=== PATIENT | female | born 1995 | race Hispanic/Latino ===

== ENCOUNTER 2022-05-16 05:35 | Emergency (ER) | payer MEDICAID ==
[~2022-05-16] VITALS: Ht 167.6 cm; Wt 106.6 kg
[2022-05-16] MEDS ORDERED: PROCHLORPERAZINE 10MG/2ML INJ IV ONE (06:30)
[2022-05-16] MEDS ORDERED: DiphenhydrAMINE HCL 50 MG/ML VIAL IV ONE (06:30)
[2022-05-16] MEDS ORDERED: KETOROLAC 15MG/ML VIAL (15MG/ML) IV ONE (06:30)
[2022-05-16] MEDS ORDERED: FIORIT PO (06:36)
[2022-05-16 07:04] VITALS: BP 135/72
== END 2022-05-16 07:20 | disposition home or self-care (01) ==
LOC: EDH 05:35
DX: R51.9 Headache, unspecified (principal); Z79.1 Long term (current) use of non-steroidal anti-inflammatories (NSAID)
CPT/HCPCS: 99284; 96374; 96375; J1200; J0780; J1885

== ENCOUNTER 2022-11-23 19:33 | Emergency (ER) | payer MEDICAID ==
[~2022-11-23 19:33] MED LIST: FIORIT PO
== END 2022-11-23 19:47 | disposition left against medical advice (07) ==
LOC: EDH 19:33
DX: T78.49XA Other allergy, initial encounter (principal); Z53.21 Procedure and treatment not carried out due to patient leaving prior to being seen by health care provider; X58.XXXA Exposure to other specified factors, initial encounter